=== PATIENT | female | born 1965 ===

== ENCOUNTER 2018-08-20 17:21 | Emergency (ER) | payer OTHER ==
[2018-08-20 17:22] VITALS: BMI 34.7
[2018-08-20 17:38] VITALS: BP 133/90; PULSE 80; RESP 20; TEMP 97.3; O2SAT 98
[2018-08-20 18:30] LABS: BASO % 0.6 % (0.0-2.0); EOS # 0.2 K/uL (0.0-0.7); EOS % 2.9 % (0.0-4.0); HEMOGLOBIN 13.7 g/dL (11.0-16.0); LYMPH % 39.3 % (20.0-40.0); MEAN CELL VOLUME 90.2 fL (81.0-99.0); MEAN CORPUSCULAR HGB CONC 33.2 g/dL (33.0-37.0); MEAN PLATELET VOLUME 8.5 fL (7.2-11.7); MONO # 0.5 K/uL (0.0-0.8); MONO % 7.1 % (0.0-10.0); NEUT # 3.8 K/uL (1.8-7.0); NEUT % 50.1 % (50.0-75.0); RBC 4.58 Mil/uL (3.80-5.20); RED CELL DISTRIBUTION WIDTH 13.2 % (11.5-14.5); WHITE BLOOD COUNT 7.5 K/uL (4.8-10.8)
[2018-08-20 18:45] LABS: BLOOD UREA NITROGEN 13 mg/dL (7-17); CALCIUM 8.9 mg/dl (8.6-10.4); GFR NON-AFRICAN AMERICAN > 60
--- NOTE | 2018-08-20 18:51 | CT ---
Date of service: 08/20/2018 PROCEDURE: CT HEAD WITHOUT CONTRAST. HISTORY: dizziness r/o ICH COMPARISON: None available. TECHNIQUE: Axial computed tomography images were obtained through the head/brain without intravenous contrast. Radiation dose: Total exam DLP = 965.01 mGy-cm. This CT exam was performed using one or more of the following dose reduction techniques: Automated exposure control, adjustment of the mA and/or kV according to patient size, and/or use of iterative reconstruction technique. FINDINGS: HEMORRHAGE: No intracranial hemorrhage. BRAIN: No mass effect or edema. Intracranial atherosclerosis. Mild scattered white matter hypodensities, which are nonspecific, but often seen with chronic microvascular ischemic disease. Please note that MRI with diffusion imaging is more sensitive in the detection of acute ischemic event. VENTRICLES: No hydrocephalus. CALVARIUM: Unremarkable. PARANASAL SINUSES: Unremarkable as visualized. No significant inflammatory changes. MASTOID AIR CELLS: Unremarkable as visualized. No inflammatory changes. OTHER FINDINGS: None. IMPRESSION: No acute intracranial pathology identified.
[2018-08-20 18:53] LABS: ALB/GLOB RATIO 1.1 (1.0-2.1); ALBUMIN 4.2 g/dL (3.5-5.0); ALT/SGPT 16 U/L (9-52); AST/SGOT 37 U/L (14-36)
--- NOTE | 2018-08-20 21:35 | C.PDOC ---
History Of Present Illness 53 year old female presents to the ED for evaluation of dizziness which began this morning. Patient did not take any medication for symptoms. He denies fever, chills, blurry or double vision, shortness of breath, vomiting, or any pain at this time. Chief Complaint (Nursing): Dizziness/Lightheaded History Per: Patient History/Exam Limitations: no limitations Onset/Duration Of Symptoms: Hrs Current Symptoms Are (Timing): Still Present Past Medical History Reviewed: Historical Data, Nursing Documentation, Vital Signs Vital Signs: Last Vital Signs Temp 97.3 F L 08/20/18 17:27 Pulse 80 08/20/18 17:27 Resp 20 08/20/18 20:08 BP 133/90 08/20/18 17: Pulse Ox 98 08/20/18 17:27 - Medical History PMH: Arthritis, Cardia Arrhythmia (SVT), Diabetes, Diverticulitis, Hypercholesterolemia, Pneumonia Denies: Asthma, Atrial Fibrillation, CHF, COPD, HIV, HTN, Chronic Kidney Disease, Seizures Surgical History: No Surg Hx Denies: CABG, Pacemaker Family History: States: Unknown Family Hx Denies: CAD - Social History Hx Alcohol Use: No Hx Substance Use: No Review Of Systems Constitutional: Negative for: Fever, Chills Eyes: Negative for: Vision Change Respiratory: Negative for: Shortness of Breath Gastrointestinal: Negative for: Vomiting Neurological: Positive for: Dizziness Physical Exam - Physical Exam Appears: Non-toxic, No Acute Distress Skin: Normal Color, Warm, Dry Head: Atraumatic, Normacephalic Eye(s): bilateral: Normal Inspection Oral Mucosa: Moist Neck: Supple Chest: Symmetrical, No Deformity, No Tenderness Cardiovascular: Rhythm Regular, No Murmur Respiratory: Normal Breath Sounds, No Rales, No Rhonchi, No Wheezing Extremity: Normal ROM, Capillary Refill (less than 2 seconds ) Neurological/Psych: Oriented x3, Normal Speech, Normal Cognition ED Course And Treatment - Laboratory Results Result Diagrams: 08/20/18 18:24 08/20/18 18:24 Lab Results: Troponin I < 0.0120 ng/mL (0.00-0.120) 08/20/18 18: Total Bilirubin 0.5 mg/dL (0.2-1.3) 08/20/18 18: AST 37 U/L (14-36) H D 08/20/18 18:24 ALT 16 U/L (9-52) 08/20/18 18:24 Alkaline Phosphatase 119 U/L (38-126) 08/20/18 18:24 Total Protein 7.9 g/dL (6.3-8.3) 08/20/18 18:24 Albumin 4.2 g/dL (3.5-5.0) 08/20/18 18:24 Globulin 3.7 gm/dL (2.2-3.9) 08/20/18 18:24 Albumin/Globulin Ratio 1.1 (1.0-2.1) 08/20/18 18:24 O2 Sat by Pulse Oximetry: 98 (on RA) Pulse Ox Interpretation: Normal - CT Scan/US CT Head Other Rad Studies (CT/US): Read By Radiologist, Radiology Report Reviewed CT/US Interpretation: Date of service: 08/20/2018. PROCEDURE: CT HEAD WITHOUT CONTRAST. HISTORY: dizziness r/o ICH. COMPARISON: None available. TECHNIQUE: Axial computed tomography images were obtained through the head/brain without intravenous contrast. Radiation dose: Total exam DLP = 965.01 mGy-cm. This CT exam was performed using one or more of the following dose reduction techniques: Automated exposure control, adjustment of the mA and/or kV according to patient size, and/or use of iterative reconstruction technique. FINDINGS: HEMORRHAGE: No intracranial hemorrhage. BRAIN: No mass effect or edema. Intracranial atherosclerosis. Mild scattered white matter hypodensities, which are nonspecific, but often seen with chronic microvascular ischemic disease. Please note that MRI with diffusion imaging is more sensitive in the detection of acute ischemic event. VENTRICLES: No hydrocephalus. CALVARIUM: Unremarkable. PARANASAL SINUSES: Unremarkable as visualized. No significant inflammatory changes. MASTOID AIR CELLS: Unremarkable as visualized. No inflammatory changes. OTHER FINDINGS: None. IMPRESSION: No acute intracranial pathology identified. Medical Decision Making Medical Decision Making: Progress: Bloodwork, CXR, EKG, CT Head ordered and reviewed. Antivert PO given. On reassessment, patient is resting comfortably, showing no signs of distress and reports an improvement in his symptoms. Patient is stable for discharge and is advised to follow up with PMD/clinic within 1-2 days for further evaluation. Disposition - Disposition Referrals: [facility] [Outside] [facility] [Outside] Disposition: HOME/ ROUTINE Disposition Time: 19:15 Condition: GOOD Additional Instructions: HIREN TEMPLETON, thank you for letting us take care of you today. The emergency medical care you received today was directed at your acute symptoms. If you were prescribed any medication, please fill it and take as directed. It may take several days for your symptoms to resolve. Return to the Emergency Department if your symptoms worsen, do not improve, or if you have any other problems. Please contact your doctor or call one of the physicians/clinics you have been referred to that are listed on the Patient Visit Information form that is included in your discharge packet. Bring any paperwork you were given at discharge with you along with any medications you are taking to your follow up visit. Our treatment cannot replace ongoing medical care by a primary care provider outside of the emergency department. Thank you for allowing the [facility] team to be part of your care today. Follow up with the clinic this week for re-evaluation and further management. HIREN TEMPLETON, hailey por dejarnos cuidar de usted brittani. La atencin mdica de emergencia que recibi hoy se dirigi a maylin sntomas agudos. Si le recetaron algn medicamento, llnelo y tmelo segn las indicaciones. Los sntomas pueden tardar varios cruz en resolverse. Regrese al Departamento de Emergencias si maylin sntomas empeoran, no mejoran o si tiene otros problemas. Comunquese con dunn mdico o llame a gurpreet de los mdicos / clnicas a los que branham sido referido que figuran en el formulario de Informacin de visita al paciente que se incluye en dunn paquete de gabriele. Lleve todos los documentos que le entregaron al momento del gabriele junto con todos los medicamentos que est tomando para dunn visita de seguimiento. Nuestro tratamiento no puede reemplazar la atencin mdica continua por un proveedor de atencin primaria fuera del departamento de emergencias. Hailey por permitir que el equipo de [facility] [employer] sea parte de dunn atencin hoy. Oralia un seguimiento con la clnica esta semana para reevaluar y administrar ms. Prescriptions: Meclizine [Meclizine*] 25 mg PO Q6 PRN #20 tab PRN Reason: Dizziness Instructions: Vertigo (a Type of Dizziness) (DC) Forms: [employer] ([place]) Print Language: PRYDEINIG - Clinical Impression Clinical Impression: Dizziness - Scribe Statement The provider has reviewed the documentation as recorded by the Scribe (Sylvia Orlando) Provider Attestation: All medical record entries made by the Scribe were at my direction and personally dictated by me. I have reviewed the chart and agree that the record accurately reflects my personal performance of the history, physical exam, medical decision making, and the department course for this patient. I have also personally directed, reviewed, and agree with the discharge instructions and disposition.
--- NOTE | 2018-08-21 08:04 | RAD ---
HISTORY: r/o infiltrate COMPARISON: None available TECHNIQUE: Chest, one view. FINDINGS: Examination limited by habitus and hypoinflation. LUNGS: Medial right lower lobe and left basilar atelectasis or pneumonia. Please note that chest x-ray has limited sensitivity for the detection of pulmonary masses. PLEURA: No significant pleural effusion identified. No definite pneumothorax . CARDIOVASCULAR: Heart size appears within normal limits. Ectatic aorta. OSSEOUS STRUCTURES: Degenerative changes. VISUALIZED UPPER ABDOMEN: Unremarkable. OTHER FINDINGS: None. IMPRESSION: Medial right lower lobe and left basilar atelectasis or pneumonia.
--- NOTE | 2018-08-21 20:19 | CARD ---
APPROVED REPORT Date of service: 08/20/2018 EKG Measurement Heart [id number] <Conclusion> Normal sinus rhythm Nonspecific T wave abnormality Abnormal ECG
== END 2018-08-20 20:08 | disposition home or self-care (01) ==
LOC: C.ER 17:21
DX: R42 Dizziness and giddiness (principal); E11.9 Type 2 diabetes mellitus without complications; E78.00 Pure hypercholesterolemia, unspecified

== ENCOUNTER 2018-08-30 09:51 | Outpatient (CLI) | payer SELFPAY | END 2018-08-30 09:52 | disposition home or self-care (01) | LOC: C.CARD 09:51 ==

== ENCOUNTER 2018-09-11 12:44 | Emergency (ER) | payer OTHER | END 2018-09-11 16:59 | disposition home or self-care (01) | LOC: C.ER 12:44 ==